=== PATIENT | male | born 1970 ===

== ENCOUNTER 2018-01-19 19:10 | Emergency (ER) | payer BC ==
[2018-01-19 19:40] VITALS: RESP 18; TEMP 98.7; O2SAT 100; BMI 25.3
--- NOTE | 2018-01-19 20:04 | ED PDOC ---
Arrival/HPI - General Chief Complaint: Back Pain Time Seen by Provider: 01/19/18 19:45 Historian: Patient - History of Present Illness Narrative History of Present Illness (Text): 01/19/18 20:01 47 year old male, with past medical history of hypertension, presents to the Emergency Department complaining of right sided flank discomfort since yesterday. Patient states unchanged sharp radiating pain to his groin prompting him to present to the Emergency Department for medical evaluation. Patient denies any urinary output changes or urine color changes. Patient denies any fever, chills, nausea, vomiting, diarrhea, abdominal pain, chest pain, shortness of breath, cough, headache, dizziness, neck pain, dysuria, hematuria or any other complaints. Time/Duration: 24 hours Symptom Onset: Gradual Symptom Course: Unchanged Quality: Aching Activities at Onset: Light Context: Home Past Medical History - Provider Review Nursing Documentation Reviewed: Yes - Infectious Disease Hx of Infectious Diseases: None - Cardiac Hx Cardiac Disorders: Yes Hx Hypertension: Yes - Pulmonary Hx Respiratory Disorders: No - Neurological Hx Neurological Disorder: No - HEENT Hx HEENT Disorder: No - Renal Hx Renal Disorder: No - Endocrine/Metabolic Hx Endocrine Disorders: No - Hematological/Oncological Hx Blood Disorders: No - Integumentary Hx Dermatological Disorder: No - Musculoskeletal/Rheumatological Hx Musculoskeletal Disorders: No - Gastrointestinal Hx Gastrointestinal Disorders: No - Genitourinary/Gynecological Hx Genitourinary Disorders: No - Psychiatric Hx Psychophysiologic Disorder: No Hx Substance Use: No Family/Social History - Physician Review Nursing Documentation Reviewed: Yes Family/Social History: No Known Family HX Smoking Status: Never Smoked Hx Alcohol Use: No Hx Substance Use: No Allergies/Home Meds Allergies/Adverse Reactions: Allergies No Known Allergies Allergy (Verified 01/19/18 19:40) Review of Systems - Physician Review All systems were reviewed & negative as marked: Yes - Review of Systems Constitutional: absent: Fevers Respiratory: absent: SOB, Cough Cardiovascular: absent: Chest Pain, MALCOLM Gastrointestinal: absent: Abdominal Pain, Diarrhea, Nausea, Vomiting Genitourinary Male: absent: Dysuria, Hematuria, Urinary Output Changes Musculoskeletal: Back Pain (right sided flank pain). absent: Neck Pain Neurological: absent: Headache, Dizziness Physical Exam Vital Signs Reviewed: Yes Vital Signs Temp Pulse Resp BP Pulse Ox 01/19/18 19:39 98.7 F 74 18 168/104 H 100 Temperature: Afebrile Blood Pressure: Hypertensive Pulse: Regular Respiratory Rate: Normal Appearance: Positive for: Well-Appearing, Non-Toxic, Comfortable Pain Distress: None Mental Status: Positive for: Alert and Oriented X 3 - Systems Exam Head: Present: Atraumatic, Normocephalic Pupils: Present: PERRL Extroacular Muscles: Present: EOMI Conjunctiva: Present: Normal Mouth: Present: Moist Mucous Membranes Neck: Present: Normal Range of Motion Respiratory/Chest: Present: Clear to Auscultation, Good Air Exchange. No: Respiratory Distress, Accessory Muscle Use Cardiovascular: Present: Regular Rate and Rhythm, Normal S1, S2. No: Murmurs Abdomen: No: Tenderness, Distention, Peritoneal Signs Back: Present: Normal Inspection Upper Extremity: Present: Normal Inspection. No: Cyanosis, Edema Lower Extremity: Present: Normal Inspection. No: Edema Neurological: Present: GCS=15, CN II-XII Intact, Speech Normal Skin: Present: Warm, Dry, Normal Color. No: Rashes Psychiatric: Present: Alert, Oriented x 3, Normal Insight, Normal Concentration Medical Decision Making ED Course and Treatment: 01/19/18 20:06 Impression: 47 year old male presents to the Emergency Department complaining of right sided flank discomfort. Differential Diagnosis included but are not limited to: kidney stones Plan: -- CT of Abdomen/Pelvis -- Labs -- Motrin -- Urine Culture -- Urinalysis -- Reassess and disposition Prior Visits: Notes and results from previous visits were reviewed. Progress Notes: 01/19/18 21:29 CT of Abdomen/Pelvis reviewed by radiologist, shows: Partial obstruction of the right kidney secondary to a small right UVJ stone. Left nephrolithiasis. - Lab Interpretations Lab Results: 01/19/18 20:18 01/19/18 20:18 Lab Results 01/19/18 20:18: Sodium 144, Potassium 4.1, Chloride 106, Carbon Dioxide 27, Anion Gap 15, BUN 15, Creatinine 1.2, Est GFR ( Amer) > 60, Est GFR (Non- Af Amer) > 60, Random Glucose 142 H, Calcium 9.9, Total Bilirubin 0.6, AST 35, ALT 59 H, Alkaline Phosphatase 87, Total Protein 8.4 H, Albumin 4.7, Globulin 3.7, Albumin/Globulin Ratio 1.3 01/19/18 20:18: Urine Color Yellow, Urine Appearance Clear, Urine pH 6.5, Ur Specific [place] 1.025, Urine Protein Trace H, Urine Glucose (UA) Negative, Urine Ketones Negative, Urine Blood Small H, Urine Nitrate Negative, Urine Bilirubin Negative, Urine Urobilinogen 0.2, Ur Leukocyte Esterase Negative, Urine RBC 5 - 10, Urine WBC 0 - 2, Ur Epithelial Cells 0 - 2, Urine Bacteria Neg 01/19/18 20:18: PT 11.9, INR 1.04 01/19/18 20:18: WBC 16.9 H, RBC 5.28, Hgb 15.6, Hct 45.5, MCV 86.2, MCH 29.5, MCHC 34.3, RDW 12.3, Plt Count 344, MPV 9.9, Gran % 81.7 H, Lymph % (Auto) 12.4 L, [place] % (Auto) 5.7, Eos % (Auto) 0.1 L, Baso % (Auto) 0.1, Gran # 13.76 H, Lymph # (Auto) 2.1, [place] # (Auto) 1.0 H, Eos # (Auto) 0.0, Baso # (Auto) 0.02 - RAD Interpretation Radiology Orders: 01/19/18 19:45 ABD & PELVIS W/O PO OR IV CONT [CT] Stat - Medication Orders Current Medication Orders: Discontinued Medications Ibuprofen (Motrin Tab) 800 mg PO STAT STA Stop: 01/19/18 19:52 Last Admin: 01/19/18 19:57 Dose: 800 mg Tamsulosin HCl (Flomax) 0.4 mg PO STAT STA Stop: 01/19/18 21:32 - Scribe Statement The provider has reviewed the documentation as recorded by the Scribnoelle Hernandez. All medical record entries made by the Chiquiibnoelle were at my direction and personally dictated by me. I have reviewed the chart and agree that the record accurately reflects my personal performance of the history, physical exam, medical decision making, and the department course for this patient. I have also personally directed, reviewed, and agree with the discharge instructions and disposition. Disposition/Present on Arrival - Present on Arrival Any Indicators Present on Arrival: No History of DVT/PE: No History of Uncontrolled Diabetes: No Urinary Catheter: No History of Decub. Ulcer: No History Surgical Site Infection Following: None - Disposition Have Diagnosis and Disposition been Completed?: Yes Diagnosis: Kidney stone on right side Disposition: HOME/ ROUTINE Disposition Time: 21:33 Patient Plan: Discharge Condition: GOOD Discharge Instructions (ExitCare): Kidney Stones (DC) Prescriptions: Ibuprofen [Motrin Tab] 800 mg PO TID #30 tab Tamsulosin [Flomax] 0.4 mg PO DAILY #10 cap Referrals: Steve Walsh MD [Staff Provider] - Follow up with primary Forms: [facility] (Dutch), WORK NOTE
[2018-01-19 20:26] LABS: BASO # 0.02 K/mm3 (0.0-2.0); BASO % 0.1 % (0.0-3.0); EOS % 0.1 % (1.5-5.0); GRAN # 13.76 (1.4-6.5); GRAN % 81.7 % (50.0-68.0); HEMOGLOBIN 15.6 g/dL (14.0-18.0); LYMPH # 2.1 (1.2-3.4); LYMPH % 12.4 % (22.0-35.0); MEAN CELL VOLUME 86.2 fl (80.0-105.0); MEAN CORPUSCULAR HEMOGLOBIN 29.5 pg (25.0-35.0); MEAN CORPUSCULAR HGB CONC 34.3 g/dl (31.0-37.0); MEAN PLATELET VOLUME 9.9 fl (7.0-11.0); MONO % 5.7 % (1.0-6.0); PH,URINE 6.5 (4.7-8.0); RBC 5.28 10^6/uL (3.5-6.1); RED CELL DISTRIBUTION WIDTH 12.3 % (11.5-14.5); URINE BILIRUBIN NEGATIVE (NEGATIVE); URINE BLOOD SMALL (NEGATIVE); URINE GLUCOSE (UA) NEGATIVE (NEGATIVE); URINE LEUKOCYTE ESTERASE NEGATIVE Leu/uL (NEGATIVE); URINE PROTEIN TRACE mg/dL (<30 mg/dL); URINE UROBILINOGEN 0.2 E.U./dL (<1 E.U./dL); WHITE BLOOD COUNT 16.9 10^3/ul (4.5-11.0)
[2018-01-19 20:27] LABS: URINE APPEARANCE CLEAR (CLEAR); URINE COLOR YELLOW (YELLOW)
[2018-01-19 20:30] LABS: INR 1.04; PROTHROMBIN TIME 11.9 SECONDS (9.4-12.5)
[2018-01-19 20:35] LABS: URINE BACTERIA NEG (NEG); URINE EPITHELIAL CELLS 0 - 2 /hpf (0-5); URINE WBC 0 - 2 /hpf (0-6)
[2018-01-19 20:51] LABS: ALB/GLOB RATIO 1.3 (1.1-1.8); ALBUMIN 4.7 g/dL (3.0-4.8); ALT/SGPT 59 U/L (7-56); AST/SGOT 35 U/L (17-59); BLOOD UREA NITROGEN 15 mg/dL (7-21); CALCIUM 9.9 mg/dL (8.4-10.5); GFR NON-AFRICAN AMERICAN > 60
[2018-01-19 21:56] VITALS: BP 148/89; PULSE 88
--- NOTE | 2018-01-20 08:59 | CT ---
Date of service: 01/19/2018 PROCEDURE: CT Abdomen and Pelvis without intravenous contrast HISTORY: Right Flank Pain, ? Stone COMPARISON: None. TECHNIQUE: Unenhanced study. Neither oral nor intravenous contrast administered. Radiation dose: Total exam DLP = 277.18 mGy-cm. This CT exam was performed using one or more of the following dose reduction techniques: Automated exposure control, adjustment of the mA and/or kV according to patient size, and/or use of iterative reconstruction technique. FINDINGS: LOWER THORAX: Unremarkable. LIVER: Unremarkable. No gross lesion or ductal dilatation. GALLBLADDER AND BILE DUCTS: Unremarkable. PANCREAS: Unremarkable. No gross lesion or ductal dilatation. SPLEEN: Unremarkable. ADRENALS: Unremarkable. No mass. KIDNEYS AND URETERS: Edematous right kidney. Right hydroureter, hydronephrosis secondary to recently passed calculus now residing in the urinary bladder. Multiple small less than 5 mm upper tract calculi identified on the left. VASCULATURE: Unremarkable. No aortic aneurysm. BOWEL: Diverticulosis without an acute inflammatory component or other associated pathologic process. APPENDIX: Unremarkable. Normal appendix. PERITONEUM: Unremarkable. No free fluid. No free air. LYMPH NODES: Unremarkable. No enlarged lymph nodes. BLADDER: 3.5 mm calculus in the urinary bladder adjacent to the right ureterovesical junction. REPRODUCTIVE: Unremarkable. BONES: No acute fracture. OTHER FINDINGS: None. IMPRESSION: Obstructive uropathy, unilateral right. Presumably related to 3.5 mm calculus in the urinary bladder near the right ureterovesical junction. Concordant results (preliminary interpretation) provided by [employer]. Procedure Completed: 20:37 Preliminary ([facility]) Report: Dictated and Authenticated: 21:19 Final Interpretation: 08:56. January 20, 2018.
== END 2018-01-19 21:55 | disposition home or self-care (01) ==
LOC: ED 19:10
DX: N20.0 Calculus of kidney (principal); I10 Essential (primary) hypertension